=== PATIENT | male | born 1975 | race Caucasian/White ===

== ENCOUNTER 2019-11-26 11:39 | Emergency (ER) | payer OTHER ==
[~2019-11-26] VITALS: Ht 185.4 cm; Wt 97.5 kg
[2019-11-26] MEDS ORDERED: CEPHALEXIN500 M1 PO (15:20)
== END 2019-11-26 15:25 | disposition home or self-care (01) ==
LOC: ED 11:39
DX: M25.461 Effusion, right knee (principal); L03.115 Cellulitis of right lower limb; Z88.5 Allergy status to narcotic agent

== ENCOUNTER → 2019-12-20 | Outpatient (CLI) | payer OTHER ==
[~2019-12-20] MED LIST: CEPHALEXIN500 M1 PO
[2019-12-20 16:16] LABS: BASO % 0.5 % (0.0-1.0); EOS # 0.1 10*3/uL (0.0-0.4); EOS % 1.7 % (1.0-4.0); HEMATOCRIT 43.4 % (42.0-52.0); HEMOGLOBIN 14.6 g/dl (14.0-18.0); LYMPH # 2.4 10*3/uL (1.3-4.4); LYMPH % 36.2 % (27.0-41.0); MEAN CELL VOLUME 98.9 fl (80.0-94.0); MEAN CORPUSCULAR HGB 33.3 pg (27.0-31.0); MEAN CORPUSCULAR HGB CONC 33.6 g/dl (33.0-37.0); MEAN PLATELET VOLUME 8.7 fl (9.6-12.3); MONO # 0.5 10*3/uL (0.1-1.0); MONO % 7.1 % (3.0-9.0); NEUT # 3.6 10*3/uL (2.3-7.9); NEUT % 54.3 % (47.0-73.0); PLATELET COUNT AUTOMATED 201 10*3/uL (130-400); RED BLOOD COUNT 4.39 10*6/uL (4.50-5.90); RED CELL DISTRI WIDTH 12.9 % (0-14.5); WHITE BLOOD COUNT 6.6 10*3/uL (4.8-10.8)
[2019-12-20 17:18] LABS: BODY FLUID WBC 102 /uL
[2019-12-20 18:20] LABS: BF LYMPHOCYTES 10 %; BF MONOCYTES 68 %; BF NEUTROPHILS 19 %
[2019-12-21 13:06] LABS: ACID FAST SPEC PROCESSING Direct Inoculation (.)
== END | disposition home or self-care (01) ==
LOC: LAB 16:03
PROVIDERS: Orthopaedic Surgery
DX: M25.462 Effusion, left knee (principal)

== ENCOUNTER → 2020-03-27 | Outpatient (CLI) | payer OTHER ==
[2020-03-27 12:03] LABS: BASO % 0.4 % (0.0-1.0); EOS # 0.1 10*3/uL (0.0-0.4); EOS % 1.4 % (1.0-4.0); HEMATOCRIT 45.4 % (42.0-52.0); LYMPH # 2.4 10*3/uL (1.3-4.4); LYMPH % 28.6 % (27.0-41.0); MEAN CELL VOLUME 98.9 fl (80.0-94.0); MEAN CORPUSCULAR HGB CONC 34.4 g/dl (33.0-37.0); MEAN PLATELET VOLUME 9.8 fl (9.6-12.3); MONO # 0.7 10*3/uL (0.1-1.0); MONO % 8.9 % (3.0-9.0); NEUT % 60.3 % (47.0-73.0); PLATELET COUNT AUTOMATED 211 10*3/uL (130-400); RED BLOOD COUNT 4.59 10*6/uL (4.50-5.90); RED CELL DISTRI WIDTH 13.2 % (0-14.5); WHITE BLOOD COUNT 8.3 10*3/uL (4.8-10.8)
[2020-03-28 06:04] LABS: HEP B CORE AB, IGM Negative (Negative); HEPATITIS B SURFACE AG Negative (Negative); HEPATITIS C VIRUS ANTIBODY <0.1 s/co (0.0-0.9)
[2020-03-28 08:08] LABS: RHEUMATOID ARTHRITIS FACTOR <10.0 IU/mL (0.0-13.9)
[2020-03-28 12:02] LABS: ANTI-RNP ANTIBODIES <0.2 AI (0.0-0.9)
[2020-03-29 01:08] LABS: CCP ANTIBODIES IGG/IGA 5 units (0-19)
[2020-03-29 02:10] LABS: PTT-LA 36.5 sec (0.0-51.9)
[2020-03-29 08:08] LABS: DVVTMIXRFX CHG; LUPUS DRVVT 50.1 sec (0.0-47.0); LUPUS REFLEX INTERPRETATION Comment: (.)
[2020-04-02 20:10] LABS: HLA-B27 ANTIGEN Negative (.)
== END | disposition home or self-care (01) ==
LOC: LAB 10:36
PROVIDERS: Orthopaedic Surgery
DX: M25.50 Pain in unspecified joint (principal)